=== PATIENT | male | born 1995 | race Caucasian/White ===

== ENCOUNTER 2018-11-27 11:30 | Emergency (ER) | payer BC, OTHER ==
[~2018-11-27] VITALS: Ht 180.3 cm; Wt 83.5 kg
[~2018-11-27 11:30] MED LIST: MED4DP PO; NAPR-985 PO; PSEU60TA2 PO
[2018-11-27 11:32] VITALS: BP 152/68; PULSE 75; RESP 18; Ht 180.3 cm; Wt 83.5 kg
[2018-11-27] MEDS ORDERED: IBUPROFEN 800 MG TAB PO ONE (12:00)
[2018-11-27] MEDS ORDERED: DEXAMETHASONE 10 MG/ML 1 ML INJ IM ONE (12:00)
--- NOTE | 2018-11-27 15:23 | ERD ---
ER Documentation Chief Complaint Chief Complaint SORE THROAT HPI 23-year-old male presenting with a sore throat with mucus and blood-tinged sputum for the last 2 days. Patient has had tactile fevers at home but has not taken medications today and has no fevers today. He has no cough and no runny nose. No ear pain. Mildly lightheaded sometimes. Denies medical problems. Allergic to penicillin. Surgical history denies. Social history denies ROS All systems reviewed and are negative except as per history of present illness. Medications Home Meds Active Scripts Pseudoephedrine Hcl* (Pseudoephedrine Hcl*) 60 Mg Tablet, 60 MG PO Q6 PRN for CONGESTION, #30 TAB Prov:MIRIAM CHOI PA-C 11/27/18 Naproxen* (Naprosyn*) 500 Mg Tablet, 500 MG PO BID PRN for PAIN AND/OR INFLAMMATION, #30 TAB Prov:MIRIAM CHOI PA-C 11/27/18 Methylprednisolone* (Medrol* DOSE PACK) 4 Mg/Dose-Pack Tab.ds.pk, 4 MG PO . DIRECTED, #1 PACKET Prov:MIRIAM CHOI PA-C 11/27/18 Allergies Allergies: Coded Allergies: Penicillins (Verified Allergy, Mild, 11/27/18) PMhx/Soc Medical and Surgical Hx: pt denies Medical Hx, pt denies Surgical Hx Hx Alcohol Use: No Hx Substance Use: No Hx Tobacco Use: No Smoking Status: Never smoker FmHx Family History: No diabetes, No coronary disease, No other Physical Exam Vitals Vital Signs Date Temp Pulse Resp B/P (MAP) Pulse Ox O2 O2 Flow FiO2 Time Delivery Rate 11/27/18 98.1 75 18 152/68 100 11:32 (96) Physical Exam GENERAL: The patient is well-appearing, well-nourished, in no acute distress HEENT: Atraumatic. Conjunctivae are pink. Pupils equal, round, and reactive to light. There is no scleral icterus. Tympanic membranes clear bilaterally. Oropharynx clear. CHEST: Clear to auscultation bilaterally. There are no rales, wheezes or rhonchi. HEART: Regular rate and rhythm. No murmurs, clicks, rubs or gallops. Result Diagram: 11/27/18 1155 11/27/18 1155 Results 24 hrs Laboratory Tests Test 11/27/18 11:55 White Blood Count 7.5 10^3/ul Red Blood Count 5.34 10^6/ul Hemoglobin 15.8 g/dl Hematocrit 48.3 % Mean Corpuscular Volume 90.4 fl Mean Corpuscular Hemoglobin 29.6 pg Mean Corpuscular Hemoglobin Concent 32.7 g/dl Red Cell Distribution Width 11.9 % Platelet Count 214 10^3/UL Mean Platelet Volume 10.2 fl Immature Granulocytes % 0.400 % Neutrophils % 73.3 % Lymphocytes % 14.3 % Monocytes % 10.5 % Eosinophils % 1.1 % Basophils % 0.4 % Nucleated Red Blood Cells % 0.0 /100WBC Immature Granulocytes # 0.030 10^3/ul Neutrophils # 5.5 10^3/ul Lymphocytes # 1.1 10^3/ul Monocytes # 0.8 10^3/ul Eosinophils # 0.1 10^3/ul Basophils # 0.0 10^3/ul Nucleated Red Blood Cells # 0.0 10^3/ul Urine Color YELLOW Urine Clarity CLEAR Urine pH 7.0 Urine Specific [place] 1.019 Urine Ketones NEGATIVE mg/dL Urine Nitrite NEGATIVE mg/dL Urine Bilirubin NEGATIVE mg/dL Urine Urobilinogen NEGATIVE mg/dL Urine Leukocyte Esterase NEGATIVE Eric/ul Urine Hemoglobin NEGATIVE mg/dL Urine Glucose NEGATIVE mg/dL Urine Total Protein NEGATIVE mg/dl Sodium Level 143 mmol/L Potassium Level 4.9 mmol/L Chloride Level 103 mmol/L Carbon Dioxide Level 32 mmol/L Anion Gap 8 Blood Urea Nitrogen 16 mg/dl Creatinine 0.84 mg/dl Est Glomerular Filtrat Rate mL/min > 60 mL/min Glucose Level 101 mg/dl Calcium Level 9.9 mg/dl Total Bilirubin 0.5 mg/dl Direct Bilirubin 0.00 mg/dl Indirect Bilirubin 0.5 mg/dl Aspartate Amino Transf (AST/SGOT) 27 IU/L Alanine Aminotransferase (ALT/SGPT) 36 IU/L Alkaline Phosphatase 111 IU/L Total Protein 8.7 g/dl Albumin 4.8 g/dl Globulin 3.90 g/dl Albumin/Globulin Ratio 1.23 Current Medications Medications Dose Sig/Vidal Start Time Status Last (Trade) Ordered Route PRN Stop Time Admin Dose Reason Admin 10 mg ONCE ONCE 11/27/18 DC 11/27/18 Dexamethasone IM 12:00 11/27/18 11:54 (Decadron) 12:01 Ibuprofen 800 mg ONCE ONCE 11/27/18 DC 11/27/18 (Motrin) PO 12:00 11/27/18 11:54 12:01 Procedures/MDM DM: 23-year-old male presenting with sore throat. Patient's blood work was within normal limits and I believe patient likely has viral throat causing irritation associated with mucus development. I have low suspicion for infec tious process and I do not feel antibiotics are indicated. Patient is discharged with supportive medications and told to follow-up with primary care within 1 to 2 days for close evaluation. Patient is told symptoms change or worsen to return immediately to the ER. All questions answered at discharge Departure Diagnosis: Primary Impression: Sore throat Condition: Stable Patient Instructions: When You Have a Sore Throat Referrals: [facility] YOU HAVE RECEIVED A MEDICAL SCREENING EXAM AND THE RESULTS INDICATE THAT YOU DO NOT HAVE A CONDITION THAT REQUIRES URGENT TREATMENT IN THE EMERGENCY DEPARTMENT. FURTHER EVALUATION AND TREATMENT OF YOUR CONDITION CAN WAIT UNTIL YOU ARE SEEN IN YOUR DOCTORS OFFICE WITHIN THE NEXT 1-2 DAYS. IT IS YOUR RESPONSIBILITY TO MAKE AN APPOINTMENT FOR FOLOW-UP CARE. IF YOU HAVE A PRIMARY DOCTOR --you should call your primary doctor and schedule an appointment IF YOU DO NOT HAVE A PRIMARY DOCTOR YOU CAN CALL OUR PHYSICIAN REFERRAL HOTLINE AT IF YOU CAN NOT AFFORD TO SEE A PHYSICIAN YOU CAN CHOSE FROM THE FOLLOWING [facility] [id number] [facility]. [facility] [address] [facility] [address] [facility] [facility] [address] [facility]. [facility] [address] [facility] [facility]. [address] Additional Instructions: FOLLOW UP WITH YOUR PRIMARY CARE PHYSICIAN TOMORROW.Return to this facility if you are not improving as expected. MIRIAM CHOI PA-C Nov 27, 2018 15:23
== END 2018-11-27 13:15 | disposition home or self-care (01) ==
LOC: FTE 11:30
DX: J02.9 Acute pharyngitis, unspecified (principal)
CPT/HCPCS: 36415; 80053; 81003; 85025; 96372; 99284; J1100; Z7610